=== PATIENT | female | born 1970 | race Hispanic/Latino ===

== ENCOUNTER → 2016-08-15 | Outpatient (CLI) | payer OTHER ==
--- NOTE | 2016-08-15 15:00 | US ---
Palpable nodule left breast retroareolar 8:00. DATE OF SERVICE: 08/15/2016 Services provided: Bilateral full field digital diagnostic mammography. CAD, the images were reviewed with R2 computer aided detection. FINDINGS: Routine and true lateral views are obtained. Exaggerated lateral craniocaudal projection views are performed. This represents baseline study. Glandular tissue is of increased mammographic density. Region of clinical concern on the left corresponds to a mammographic asymmetry retroareolar 8:00. Exaggerated lateral craniocaudal projection view on the left also suggests a focal asymmetry behind the nipple. Directed ultrasound confirms a 17 mm simple cyst corresponding to the region of palpable change left breast retroareolar 8:00. Adjacent 6 mm cyst is shown as well. IMPRESSION: Benign exam. Palpable changes in the right breast corresponds to fibrocystic change. Recommendation: Routine annual mammography. Findings and recommendations were dedicated to the patient. BIRAD CATEGORY: 2 BENIGN Electronically signed by: Marquita Moses MD 08/15/2016 3:01 PM CDT
== END | disposition home or self-care (01) ==
LOC: MAMMO 15:02
PROVIDERS: ATTEND Family Medicine
DX: R92.8 Other abnormal and inconclusive findings on diagnostic imaging of breast (principal)